=== PATIENT | male | born 1950 | race Caucasian/White ===

== ENCOUNTER 2019-04-15 19:24 | Emergency (ER) | payer SELFPAY ==
[2019-04-15] MEDS ORDERED: NS 0.9% 1000 ML** 1,000 ML IV ONE (19:50)
[2019-04-15] MEDS ORDERED: Ondansetron INJ* 2 MG/ML VIAL IV ONE (19:50)
[2019-04-15] MEDS ORDERED: Ketorolac INJ* 30 MG/ML 1 ML VIAL IV ONE (19:50)
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
[2019-04-15 22:49] VITALS: BP 139/83
[2019-04-15] MEDS ORDERED: Cyclobenzaprine TAB* 10 MG PO ONE ×2 (23:15→23:18)
== END 2019-04-15 22:48 | disposition home or self-care (01) ==
LOC: ED 19:24
DX: S22.089A Unspecified fracture of T11-T12 vertebra, initial encounter for closed fracture (principal); S32.019A Unspecified fracture of first lumbar vertebra, initial encounter for closed fracture; S32.029A Unspecified fracture of second lumbar vertebra, initial encounter for closed fracture; S32.039A Unspecified fracture of third lumbar vertebra, initial encounter for closed fracture; S32.049A Unspecified fracture of fourth lumbar vertebra, initial encounter for closed fracture; V43.52XA Car driver injured in collision with other type car in traffic accident, initial encounter; Y92.410 Unspecified street and highway as the place of occurrence of the external cause
CPT/HCPCS: 72131; 96361; 96374; 96375; 99282; A9270-GY; J1885; J2405